=== PATIENT | female | born 1990 | race American Indian/Alaskan Native ===

== ENCOUNTER 2020-03-01 06:46 | Emergency (ER) | payer SELFPAY ==
[2020-03-01] MEDS ORDERED: TETANUS,DIPHTHERIA TOXOID ADULT 0.5 ML INJ IM NR (07:20)
[2020-03-01] MEDS ORDERED: LORazepam 2 MG/ML VIAL IM ONE (07:20)
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
[2020-03-01 07:41] LABS: Basophils # (Auto) 0.1 K/mm3 (0.0-0.1); Basophils % (Auto) 1.2 % (0.0-1.8); Eosinophils # (Auto) 0.5 K/mm3 (0.0-0.4); Eosinophils % (Auto) 5.7 % (0.0-4.3); Hematocrit 41.3 % (30.3-42.9); Hemoglobin 14.2 gm/dl (10.1-14.3); Lymphocytes # (Auto) 2.1 K/mm3 (1.2-5.4); Lymphocytes % (Auto) 22.3 % (13.4-35.0); Mean Corpuscular HGB Conc 34 % (30-34); Mean Corpuscular Volume 93 fl (79-97); Monocytes # (Auto) 0.9 K/mm3 (0.0-0.8); Monocytes % (Auto) 9.1 % (0.0-7.3); Platelet Count 333 K/mm3 (140-440); Red Blood Count 4.44 M/mm3 (3.65-5.03); Red Cell Distribution Width 13.4 % (13.2-15.2)
[2020-03-01] MEDS ORDERED: MAGNESIUM HYDROXIDE (MOM) ORAL LIQD UDC PO PRN (07:42)
[2020-03-01] MEDS ORDERED: ACETAMINOPHEN 325 MG TAB PO PRN (07:42)
[2020-03-01] MEDS ORDERED: ALUM-MAG HYDROXIDE-SIMETHICONE 200-200-20MG/5ML ORAL LIQD 30 ML PO PRN (07:42)
[2020-03-01] MEDS: ZIPRASIDONE MESYLATE 20 MG VIAL IM ONE ×2 (07:51→07:52)
[2020-03-01 08:02] LABS: BUN/Creatinine Ratio 20; Blood Urea Nitrogen 12 mg/dL (7-17); Calcium 9.2 mg/dL (8.4-10.2); Hemolysis Index 16
[2020-03-01 08:24] LABS: Creatine Kinase MB 5.7 ng/mL (0.0-4.0)
[2020-03-01] MEDS: LORazepam 1 MG TAB PO SCH ×2 (09:48→22:38)
[2020-03-01] MEDS: ZIPRASIDONE 20 MG CAP PO SCH ×2 (09:48→22:38)
[2020-03-01 20:49] LABS: Bilirubin,Urine NEG (Negative); Blood,Urine NEG (Negative); Color,Urine Yellow (Yellow); Mucus,Urine FEW /HPF; Protein,Urine <15 mg/dL mg/dL (Negative); Urobilinogen,Urine < 2.0 mg/dL (<2.0)
[2020-03-01 20:51] LABS: HCG Qualitative,Urine Negative (Negative)
[2020-03-01 20:57] LABS: Benzodiazepines Screen,Urine PRESUMPTIVE NEGATIVE; Methadone Screen,Urine PRESUMPTIVE NEGATIVE; Opiate Screen,Urine PRESUMPTIVE NEGATIVE
[2020-03-01 21:08] LABS: Amphetamine Screen,Urine PRESUMPTIVE POSITIVE; Cannabinoid Screen,Urine PRESUMPTIVE POSITIVE; Cocaine Screen,Urine PRESUMPTIVE POSITIVE
--- NOTE | 2020-03-02 10:11 | Event Note ---
Date: 03/02/20 patient verbally violent agitated combative and aggresive. [id number] evaluation performed. We attempted to verbally de-escalate the patient, calm her down through verbal techniques, and also through show of force. The patient presents is floridly psychotic, does not demonstrate decision-making capacity, and clearly is psychotic without decision-making ability. She will therefore be medicated with haloperidol and Ativan, and placed in seclusion for her safety and staff safety. At the moment, the patient is medically suitable for psychiatric placement, consultation and evaluation. She does not demonstrate an immediate medical contraindication to psychiatric placement at this time.
[2020-03-02] MEDS: LORazepam 1 MG TAB PO SCH ×2 (10:16→22:00)
[2020-03-02] MEDS: ZIPRASIDONE 20 MG CAP PO SCH ×2 (10:17→22:00)
[2020-03-02] MEDS: LORazepam 2 MG/ML VIAL IM PRN (10:17)
[2020-03-02] MEDS: HALOPERIDOL LACTATE 5 MG/1 ML INJ IM PRN (10:18)
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
[2020-03-03] MEDS: LORazepam 2 MG/ML VIAL IM PRN (07:01)
[2020-03-03] MEDS: HALOPERIDOL LACTATE 5 MG/1 ML INJ IM PRN (07:02)
[2020-03-03 07:38] VITALS: BP 117/79
[2020-03-03] MEDS: LORazepam 1 MG TAB PO SCH (10:59)
[2020-03-03] MEDS: ZIPRASIDONE 20 MG CAP PO SCH (11:00)
== END 2020-03-03 16:01 ==
LOC: EEVIPCON 06:46 → ED 06:46
DX: T24.201A Burn of second degree of unspecified site of right lower limb, except ankle and foot, initial encounter (principal); F31.9 Bipolar disorder, unspecified; F17.200 Nicotine dependence, unspecified, uncomplicated; Z87.891 Personal history of nicotine dependence; X58.XXXA Exposure to other specified factors, initial encounter
CPT/HCPCS: 36415; 80048; 80307; 81001; 81025; 82550; 82553; 85025; 90471; 90714; 96372; 99285; J1630; J2060; J3486; 80320; G0480

== ENCOUNTER 2020-05-16 04:48 | Emergency (ER) | payer SELFPAY ==
[2020-05-16 05:05] VITALS: BP 106/65
--- NOTE | 2020-05-16 06:42 | Emergency Department Report ---
HPI - General Chief Complaint: Skin/Abscess/Foreign Body Time Seen by Provider: 05/16/20 06:38 - HPI HPI: This is a 29-year-old -[place] female presents to the emergency department with a complaint of a abscess or boil to the back of her neck. She says that it has been there for about 4 to 5 days. She thinks that there has been some drainage from it. She denies any headache, fever, nausea, vomiting. Past medical history that includes bipolar disorder and mood disorder. ED Past Medical Hx - Past Medical History Hx Psychiatric Treatment: Yes (bipolar) Additional medical history: MOOD DISORDER - Surgical History Additional Surgical History: tubal ligation, right wrist - Social History Smoking Status: Current Every Day Smoker Substance Use Type: Alcohol - Medications Home Medications: Home Medications Medication Instructions Recorded Confirmed Last Taken Type carBAMazepine [Tegretol] 400 mg PO QDAY 03/02/20 03/02/20 Unknown History Sulfamethoxazole/Trimethoprim 1 each PO BID #14 tablet 05/16/20 Unknown Rx [Bactrim DS TAB] ED Review of Systems ROS: Stated complaint: ABCESS ON BACK OF NECK Other details as noted in HPI Comment: All other systems reviewed and negative Constitutional: denies: chills, fever Skin: lesions. denies: pruritus Neurological: denies: headache, weakness Physical Exam - Physical Exam Vital Signs: Vital Signs 05/16/20 05:04 Temperature 98.0 F Pulse Rate 87 Respiratory 18 Rate Blood Pressure 106/65 [Right] O2 Sat by Pulse 100 Oximetry Physical Exam: GENERAL: The patient is well-developed well-nourished. HENT: Normocephalic. Atraumatic. EYES: Extraocular motions are intact. NECK: Supple. Trachea is midline. There is an abscess to the posterior inferior neck that is about the size of a quarter in its greatest diameter and is mostly indurated. There is some overlying erythema. CHEST/LUNGS: Clear to auscultation. There is no respiratory distress noted. HEART/CARDIOVASCULAR: Regular. There is no tachycardia. There is no murmur. SKIN: Skin is warm and dry. There is an abscess to the posterior inferior neck that is about the size of a quarter in its greatest diameter and is mostly indurated. There is some overlying erythema. NEURO: The patient is awake, alert, and oriented. The patient is cooperative. Normal speech. MUSCULOSKELETAL: There is no limitation range of motion. ED Course Vital Signs 05/16/20 05:04 Temperature 98.0 F Pulse Rate 87 Respiratory 18 Rate Blood Pressure 106/65 [Right] O2 Sat by Pulse 100 Oximetry - I & D Neck Type of Procedure: Simple Site: Posterior inferior neck Blade Size: 11 I & D Procedure: betadine prep, sterile dressing applied Progress: The area was cleaned and then a small 1 cm incision was made with an 11 blade scalpel. There was no significant return of purulence purulent return. Pressure was held and the patient was given a sterile gauze dressing. The patient tolerated the procedure well. No complications. ED Medical Decision Making - Medical Decision Making Patient presents with an abscess to the inferior posterior neck. It is mostly indurated but there is a small area in the middle that felt fluctuant so I made an attempt for an incision and drainage. There was no significant purulent return but there is now at least an opening and the patient will continue to use warm compresses. Since there is also some overlying erythema, the patient will be placed on antibiotics. Vital signs reassuring including being afebrile. We discussed signs/symptoms of infection and for return. Critical Care Time: No Critical care attestation.: If time is entered above; I have spent that time in minutes in the direct care of this critically ill patient, excluding procedure time. ED Disposition Clinical Impression: Abscess of skin of neck Disposition: -01 TO HOME OR SELFCARE Is pt being admited?: No Condition: Stable Instructions: Abscess Incision and Drainage (ED), Abscess (ED) Additional Instructions: Please follow-up with your primary care physician in the next few days. Take the antibiotics as prescribed. Return to the emergency department with any worsening of your symptoms, especially any signs/symptoms of infection such as increased swelling, increased redness, increased or new pain, development of fever. Prescriptions: Sulfamethoxazole/Trimethoprim [Bactrim DS TAB] 1 each PO BID #14 tablet Referrals: PRIMARY MD JANA [Primary Care Provider] - 3-[address] [facility] [Provider Group] - 3-5 Days Time of Disposition: 06:59
== END 2020-05-16 07:07 | disposition home or self-care (01) ==
LOC: ED 04:48
DX: L02.11 Cutaneous abscess of neck (principal)
CPT/HCPCS: 99282

== ENCOUNTER 2020-06-18 21:46 | Emergency (ER) | payer SELFPAY ==
[2020-06-18 23:30] LABS: Basophils # (Auto) 0.1 K/mm3 (0.0-0.1); Basophils % (Auto) 0.9 % (0.0-1.8); Eosinophils # (Auto) 0.1 K/mm3 (0.0-0.4); Eosinophils % (Auto) 0.8 % (0.0-4.3); Hematocrit 42.6 % (30.3-42.9); Hemoglobin 14.4 gm/dl (10.1-14.3); Lymphocytes # (Auto) 1.6 K/mm3 (1.2-5.4); Lymphocytes % (Auto) 16.1 % (13.4-35.0); Mean Corpuscular HGB Conc 34 % (30-34); Mean Corpuscular Volume 93 fl (79-97); Monocytes # (Auto) 0.8 K/mm3 (0.0-0.8); Monocytes % (Auto) 8.1 % (0.0-7.3); Platelet Count 343 K/mm3 (140-440)
[2020-06-18 23:44] LABS: BUN/Creatinine Ratio 10; Blood Urea Nitrogen 9 mg/dL (7-17); Calcium 9.6 mg/dL (8.4-10.2); Hemolysis Index 7
[2020-06-19 01:16] LABS: Amphetamine Screen,Urine PRESUMPTIVE POSITIVE; Benzodiazepines Screen,Urine PRESUMPTIVE NEGATIVE; Cannabinoid Screen,Urine PRESUMPTIVE POSITIVE; Cocaine Screen,Urine PRESUMPTIVE NEGATIVE; Methadone Screen,Urine PRESUMPTIVE NEGATIVE; Opiate Screen,Urine PRESUMPTIVE NEGATIVE
[2020-06-19 01:18] LABS: Bilirubin,Urine NEG (Negative); Blood,Urine NEG (Negative); Color,Urine Yellow (Yellow); Mucus,Urine FEW /HPF; Protein,Urine <15 mg/dL mg/dL (Negative)
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
[2020-06-19] MEDS ORDERED: POTASSIUM CHLORIDE ER 20 MEQ TAB PO ONE ×2 (04:48→04:51)
[2020-06-19] MEDS ORDERED: diphenhydrAMINE 50 MG/ML VIAL IM ONE (09:40)
[2020-06-19] MEDS ORDERED: ZIPRASIDONE MESYLATE 20 MG VIAL IM ONE ×2 (09:40→09:54)
[2020-06-19] MEDS ORDERED: diphenhydrAMINE 50 MG/ML VIAL ONE (09:45)
[2020-06-19] MEDS ORDERED: ALPRAZolam 0.5 MG TAB PO ONE (21:33)
[2020-06-20] MEDS ORDERED: LORazepam 2 MG/ML VIAL ONE (08:56)
[2020-06-20] MEDS ORDERED: LORazepam 2 MG/ML VIAL IM ONE (08:57)
[2020-06-20] MEDS ORDERED: ZIPRASIDONE MESYLATE 20 MG VIAL IM ONE (08:57)
[2020-06-20] MEDS ORDERED: WATER FOR INJ Sterile (PF) 10 ML ONE (08:59)
--- NOTE | 2020-06-20 13:55 | Consultation ---
History of Present Illness - Reason for Consult Consult date: 06/20/20 Reason for consult: paranoia, delusional - History of Present Psychiatric Illness Becky Alvarado is a 29y/o female patient who presented to the ER for delusions. I attempted to interview the patient today, but was unable to awaken her. The sitter states the patient was given geodon. PAST PSYCHIATRIC HISTORY Unable to assess PAST MEDICAL HISTORY: None reported Family Psychiatric History: None reported or documented SOCIAL HISTORY Unable to assess EVIEW OF SYSTEMS Unable to assess MENTAL STATUS EXAMINATION Unable to assess Assessment Bipolar Disorder Methamphetamine Use Disorder Substance Induced Mood Disorder Plan Start Risperidone 0.5mg po BID Start Depakote DR 125mg po BID Start Trazodone 50mg po qhs Start Geodon 10mg IM q4h prn agitation Sitter: Defer to primary Medical: Per primary Disposition: was unable to assess the patient, but due to clinical picture re commend acute inpatient treatment at this time. Will follow. Thank you for this consult. Medications and Allergies Allergies Allergy/AdvReac Type Severity Reaction Status Date / Time No Known Allergies Allergy Verified 06/18/20 22:15 Home Medications Medication Instructions Recorded Confirmed Last Taken Type carBAMazepine [Tegretol] 400 mg PO QDAY 03/02/20 03/02/20 Unknown History Sulfamethoxazole/Trimethoprim 1 each PO BID #14 tablet 05/16/20 Unknown Rx [Bactrim DS TAB] Mental Status Exam - Vital signs Last Vital Signs Temp 98.2 F 06/20/20 02:00 Pulse 75 06/20/20 02:00 Resp 16 06/20/20 02:00 BP 119/65 06/20/20 02:00 Pulse Ox 100 06/20/20 02:00 Results Result Diagrams: 06/18/20 22:55 06/19/20 23:09 All other labs normal.
[2020-06-20] MEDS ORDERED: ZIPRASIDONE MESYLATE 20 MG VIAL IM PRN (13:58)
[2020-06-20] MEDS: DIVALPROEX DR 125 MG TAB PO SCH ×2 (15:27→23:13)
[2020-06-20] MEDS: risperiDONE 0.25 MG TAB PO SCH ×2 (15:27→23:13)
[2020-06-20] MEDS ORDERED: traZODone 50 MG TAB PO SCH (22:00)
[2020-06-21 00:40] VITALS: BP 117/71
--- NOTE | 2020-06-21 10:20 | Progress Note ---
Subjective - Reason for Consult Consult date: 06/21/20 Reason for consult: delusions - Chief Complaint Chief complaint: The patient's medical record was reviewed and the patient's progress was discussed with the nursing staff. The nurse note states the patient is resting quietly on recliner, resp even and non labored, no acute distress noted, no s/s of self harm noted, ambulates as needed to restroom without difficulty, able to make needs known During my interview with the patient today, she is lying in bed awake. She is asking to go home. She says "I need to get back to [place] to take care of my business." The patient denies SI/HI and hallucinations of any kind. She states, "I never told anybody I was doing none of that." She thens says, "I came here for medical and they didn't fix it, so I didn't see the point." The patient describes her mood as "irritable." She says, "I'm from [place], and this is just who I am, but people think I'm rude or need to calm down." REVIEW OF SYSTEMS Constitutional: Negative for weight loss ENT: Negative for stridor Respiratory: Negative for cough or hemoptysis All other systems reviewed and are negative MENTAL STATUS EXAMINATION General Appearance and Behavior: Age appropriate, wearing appropriate clothes, calm and cooperative. Mood: "irritable" Affect and affective range: congruent with mood Thought Process: goal directed Thought Content: logical Speech: Normal volume, Regular rate and rhythm Suicidal Ideation: Denies Homicidal Ideation: Denies Hallucinations: Denies Delusions: None elicited Impulse Control: Unimpaired Insight and Judgment: Normal insight and judgment Memory: Normal Attention: Normal Orientation: Alert, oriented Assessment Bipolar Disorder Methamphetamine Use Disorder Substance Induced Mood Disorder Plan D/c 1013 Risperidone 0.5mg po BID Depakote DR 125mg po BID Trazodone 50mg po qhs Sitter: Defer to primary Medical: Per primary Disposition: Do not recommend acute inpatient treatment. The patient understands that if any thoughts of self harm or fear of endangerment are to arise she is to seek immediate assistance, including but not limited to the crisis hotline, 911/ER The bobbin loose end finder to implement safety plan, and give resources for outpatient psych, cognitive behavior therapy and drug rehabilitation programs. The patient is to abstain from all illicit drug use Follow up in 7 to 14 days with psychiatry upon discharge Will sign off. Thank you for this consult. Mental Status Exam - Vital signs Last Vital Signs Temp 98.2 F 06/20/20 02:00 Pulse 83 06/20/20 20:04 Resp 18 06/20/20 20:04 BP 117/71 06/20/20 20:04 Pulse Ox 99 06/20/20 20:04
[2020-06-21] MEDS: risperiDONE 0.25 MG TAB PO SCH (12:14)
[2020-06-21] MEDS: DIVALPROEX DR 125 MG TAB PO SCH (12:14)
== END 2020-06-21 14:48 | disposition home or self-care (01) ==
LOC: ED 21:46
DX: F31.9 Bipolar disorder, unspecified (principal); F19.10 Other psychoactive substance abuse, uncomplicated; F17.200 Nicotine dependence, unspecified, uncomplicated; Z98.51 Tubal ligation status; Z98.890 Other specified postprocedural states; Z79.899 Other long term (current) drug therapy
CPT/HCPCS: 36415; 80048; 80307; 81001; 84132; 84703; 85025; 96372; 99284; J1200; J2060; J3486; 80320; G0480